=== PATIENT | female | born 1975 | race African-American/Black ===

== ENCOUNTER 2023-12-12 14:07 | Emergency (ER) | payer MEDICAID ==
[~2023-12-12] VITALS: Ht 167.6 cm; Wt 78.5 kg
[2023-12-12 14:18] VITALS: BP 146/84; PULSE 88; RESP 16; TEMP 98.4; O2SAT 98
[2023-12-12 17:47] LABS: BASOPHILS % 0.1 % (0.0-2.0); DIFFERENTIAL COMMENT 0; EOSINOPHILS % 0.1 % (0.0-5.0); HEMATOCRIT. 32.7 % (36.0-48.0); HEMOGLOBIN. 10.4 g/dL (12.0-16.0); LYMPHOCYTES % 11.4 % (20.0-50.0); MEAN CORPUSCULAR HEMOGLOBIN 24.5 pg (28.0-32.0); MEAN CORPUSCULAR HGB CONC 31.9 g/dL (31.0-37.0); MEAN CORPUSCULAR VOLUME 76.7 fL (81.0-99.0); MEAN PLATELET VOLUME 9.1 fl (7.4-10.4); MONOCYTES % 3.4 % (2.0-8.0); PLATELET 340 x1000/uL (130-400); RED BLOOD CELL COUNT 4.26 mill/uL (4.2-5.4); RED CELL DISTRIBUTION WIDTH 17.5 % (11.6-14.6); WHITE BLOOD COUNT 9.6 x1000/uL (4.5-11.0)
[2023-12-12 17:55] LABS: CARBON DIOXIDE 25 mEq/L (21-32); CHLORIDE 104 mEq/L (98-107); POTASSIUM 3.7 mEq/L (3.5-5.1); SODIUM 137 mEq/L (136-145)
[2023-12-12 17:56] LABS: CALCIUM 9.6 mg/dL (8.7-10.4)
[2023-12-12 18:00] LABS: HCG SCREEN NEGATIVE
[2023-12-12 18:01] LABS: CREATININE 0.7 mg/dL (0.6-1.0); GLUCOSE 105 mg/dL (70-105); UREA NITROGEN BLOOD 9 mg/dL (9-23)
[2023-12-12] MEDS: TETANUS, DIPHTHERIA, PERTUSSIS VAC/PF 0.5ML (>10YR OLD) IM ONE (18:15)
[2023-12-12] MEDS: KETOROLAC 15MG/ML VIAL IM ONE (18:21)
[2023-12-12] MEDS: ACETAMINOPHEN 325MG TABLET PO NR (18:24)
== END 2023-12-12 20:00 | disposition home or self-care (01) ==
LOC: ER 14:07
DX: S41.132A Puncture wound without foreign body of left upper arm, initial encounter (principal); R51.9 Headache, unspecified; V98.8XXA Other specified transport accidents, initial encounter; Y93.89 Activity, other specified; Y92.89 Other specified places as the place of occurrence of the external cause; Y99.8 Other external cause status
CPT/HCPCS: 80048; 81025; 84703; 85025; 36415; 73060; 73090; 73110; 70450; 72125; 71250; 74176; 96372; 99285; J1885; Z7610